=== PATIENT | male | born 2000 | race American Indian/Alaskan Native ===

== ENCOUNTER 2020-05-12 10:15 | Emergency (ER) | payer OTHER ==
[2020-05-12 11:15] VITALS: BP 126/84
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
== END 2020-05-12 12:21 | disposition left against medical advice (07) ==
LOC: ED 10:15
DX: M54.2 Cervicalgia (principal); M54.5 Low back pain; Z53.21 Procedure and treatment not carried out due to patient leaving prior to being seen by health care provider; V49.9XXA Car occupant (driver) (passenger) injured in unspecified traffic accident, initial encounter; Y93.89 Activity, other specified; Y92.488 Other paved roadways as the place of occurrence of the external cause; Y99.8 Other external cause status